=== PATIENT | male | born 1945 | race Caucasian/White ===

== ENCOUNTER 2017-05-16 01:49 | Emergency (ER) | payer BC, MEDICARE ==
[2017-05-16] MEDS ORDERED: Thiamine 100 mg/mL 2mL Vial IM STA (02:04)
--- NOTE | 2017-05-16 02:12 | ED Physician Chart ---
ED Chief Complaint/HPI - Patient Information Date Seen:: 05/16/17 Chief Complaint:: intoxicated computer repairer run History of Present Illness:: admits intoxication reports falling no loss of consciousness, patient sitting on bench no reproducible palpatory neck pain, patient requesting flu shot. Historian:: Patient Review:: Nurse's Note Reviewed ED Review of Systems - Review of Systems General/Constitutional: No fever Skin: Skin lesions Eyes: No loss of vision, Pain ENT: No nasal drainage Neck: No neck pain Cardio Vascular: No chest pain Pulmonary: No SOB GI: No vomiting G/U: No hematuria Musculoskeletal: No bone or joint pain Endocrine: No polyuria Psychiatric: No homicidal ideation Hematopoietic: Bruising Allergic/Immuno: No urticaria Neurological: No syncope ED Past Medical History - Past Medical History Obtainable: No (intoxicated) Social History: Alcohol Family Medical History - Family Member Mother History Unknown: Yes ED Physical Exam - Physical Examination General/Constitutional: Awake, Alert Other Gen/Cons comments:: slight skin abrasion present with blood right forehead no focal sign responsive patient arousable Head: Atraumatic Eyes: Lids, conjuctiva normal Skin: No rash, No ecchymosis, Well hydrated Other Skin comments:: swelling ENMT: External ears, nose nl, Nasal exam nl, Lips, teeth, gums nl Neck: Nontender, Full ROM w/o pain, No JVD, No nuchal rigidity, No bruit, No mass, No stridor Respiratory: Nl effort/Exclusion, Clear to Auscultation, No Wheeze/Rhonchi/Rales Cardio Vascular: RRR, No murmur, gallop, rubs, NL S1 S2 GI: No tenderness/rebounding/guarding, No organomegaly, No hernia, Normal BS's, Nondistended, No mass/bruits, No McBurney tenderness : No CVA tenderness Extremities: No tenderness or effusion, Full ROM, normal strength in all extremities, Normal digits & nails Neuro/Psych: Alert/oriented, DTR's symmetric, Normal sensory exam, Normal motor strength, Judgement/insight normal, Mood normal, Normal gait, No focal deficits Other Neuro/Psych comments:: intoxicated 3/5 Misc: Normal back, No paraspinal tenderness ED Assessment - Assessment General Assessment: Acute alcoholic intoxication with fall and minor skin abrasion to right frontal skull. This condition life threatening/high prob of deterioration: No ED Septic Shock - . Is Septic Shock (SBP<90, OR Lactate>4 mmol\L) present?: No ED Reassessment (Disposition) - Reassessment Reassessment Condition:: Improved - Aftercare/Follow up Instructions Aftercare/Follow-Up Instructions:: Counseled pt regarding lab results/diagnosis & need follow up, Refer to Discharge Instructions - Patient Disposition Discharge/Transfer:: Home Transport Method:: Private ED Discharge Plan - Patient Disposition Condition at Disposition: Improved Instructions: Alcohol Intoxication, [id number], Laceration Care, Adult, Easy- to-Read Additional Instructions: KEEP WOUND CLEAN AT ALL TIMES STOP DRINKING ALCOHOLIC BEVERAGES FOLLOW UP WITH YOUR PRIMARY MEDICAL DOCTOR DENISSE
[2017-05-16] MEDS ORDERED: Thiamine 100 mg/mL 2mL Vial ONE (02:14)
== END 2017-05-16 06:45 | disposition home or self-care (01) ==
LOC: ER 01:49
DX: F10.129 Alcohol abuse with intoxication, unspecified (principal); S00.01XA Abrasion of scalp, initial encounter; W19.XXXA Unspecified fall, initial encounter; Y93.89 Activity, other specified; Y92.89 Other specified places as the place of occurrence of the external cause; Y99.8 Other external cause status
CPT/HCPCS: 99284; 96372; 36416; 82948; 90715; J3411; Z7502